=== PATIENT | female | born 1965 | race Caucasian/White ===

== ENCOUNTER 2019-07-05 10:26 | Emergency (ER) | payer OTHER ==
[2019-07-05 11:07] VITALS: BP 137/67
--- NOTE | 2019-07-05 11:34 | UC ---
Throat Pain/Nasal Darrell HPI - HPI Summary HPI Summary: 53 yo woman with rare muscular disease/rhabdomyolosis and renal failure in the past, with 4 day hx of sinus pressure typical of sinusitis. Awoke today with crusting left eye discharge and eye ache, normal vision. Chronic cough secondary to smoking, but no shortness of breath or chest pain. Leaving for [place] this week for the next 6 months. - History of Current Complaint Chief Complaint: UCGeneralIllness Stated Complaint: SINUS CONGESTION,LEFT EYE COMPLAINT Time Seen by Provider: 07/05/19 11:27 Hx Obtained From: Patient Hx Last Menstrual Period: 09/18/12 Onset/Duration: Gradual Onset Severity: Moderate Pain Intensity: 0 Cough: Nonproductive Associated Signs & Symptoms: Positive: Sinus Discomfort, Nasal Discharge. Negative: Dysphagia, Wheezing, Hoarseness, Fever - Epiglottits Risk Factors Epiglottis Risk Factors: Negative - Allergies/Home Medications Allergies/Adverse Reactions: Allergies Allergy/AdvReac Type Severity Reaction Status Date / Time moxifloxacin [From Avelox] Allergy See Comment Verified 07/05/19 11:11 sulfamethoxazole Allergy Hives Verified 07/05/19 11:08 [From Bactrim] trimethoprim [From Bactrim] Allergy Hives Verified 07/05/19 11:08 Home Medications: Home Medications Hydrocodone/Acetaminophen [Vicodin 5-300 mg] 1 tab PO TID PRN 07/05/19 [History Confirmed 07/05/19] PMH/Surg Hx/FS Hx/Imm Hx - Additional Past Medical History Additional PMH: 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 - Surgical History Surgical History: Yes Surgery Procedure, Year, and Place: TUBAL, SINUS SURGERY - Family History Known Family History: Positive: Non-Contributory - Social History Occupation: Disabled - from nursing. Lives: With Family Alcohol Use: None Substance Use Type: None Smoking Status (MU): Heavy Every Day Tobacco Smoker Type: Cigarettes Amount Used/How Often: 1 1/2 PPD Length of Time of Smoking/Using Tobacco: 35 Years Have You Smoked in the Last Year: Yes Household Exposure Type: Cigarettes Review of Systems All Other Systems Reviewed And Are Negative: Yes Constitutional: Positive: Fatigue Skin: Positive: Negative Eyes: Positive: Drainage, Eye Redness. Negative: Photophobia ENT: Positive: Nasal Discharge, Sinus Congestion Respiratory: Positive: Cough Cardiovascular: Negative: Palpitations, Chest Pain Gastrointestinal: Positive: Negative Genitourinary: Positive: Negative Motor: Positive: Negative Neurovascular: Positive: Negative Musculoskeletal: Positive: Myalgia Neurological: Positive: Negative, Headache Is Patient Immunocompromised?: No Physical Exam Triage Information Reviewed: Yes Appearance: Ill-Appearing - looks chronically unwell, Obese Vital Signs: Initial Vital Signs Temp 98.2 F 07/05/19 11:02 Pulse 86 07/05/19 11:02 Resp 16 07/05/19 11:02 BP 137/67 07/05/19 11:02 Pulse Ox 100 07/05/19 11:02 Eye Exam: Other - CARMEN, no photophobia Eyes: Positive: Conjunctiva Inflamed - bilaterally. ENT: Positive: Pharyngeal erythema, TMs normal Neck: Positive: Supple, Nontender, No Lymphadenopathy Respiratory: Positive: Lungs clear, Normal breath sounds Cardiovascular: Positive: RRR, No Murmur Musculoskeletal Exam: Other - not assessed in detail, states cannot move to exam table due to muscle fatigue. Neurological Exam: Normal Psychological Exam: Normal Skin Exam: Normal Throat Pain/Nasal Course/Dx - Course Course Of Treatment: Eye drops and amoxicillin for treatment of conjunctivitis and sinusitis. - Differential Dx/Diagnosis Provider Diagnosis: Sinusitis, Conjunctivitis Discharge ED - Sign-Out/Discharge Documenting (check all that apply): Patient Departure All imaging exams completed and their final reports reviewed: No Studies - Discharge Plan Condition: Stable Disposition: HOME Prescriptions: Amoxicillin PO (*) [Amoxicillin 875 MG (*)] 875 mg PO BID #20 tab Tobramycin 0.3% OPHTH.SARAI* 2 drop BOTH EYES QID 5 Days #1 btl Patient Education Materials: Sinusitis (ED), Conjunctivitis (ED) Referrals: Margie Hayes RD [Primary Care Provider] - Additional Instructions: Use 2 drops to both eyes four times daily for 5 days. Use amoxicillin twice daily for treatment of sinus infection. - Billing Disposition and Condition Condition: STABLE Disposition: Home
== END 2019-07-05 11:52 | disposition home or self-care (01) ==
LOC: UCCORT 10:26
DX: J32.9 Chronic sinusitis, unspecified (principal); H10.9 Unspecified conjunctivitis; F17.210 Nicotine dependence, cigarettes, uncomplicated; Z88.1 Allergy status to other antibiotic agents; Z88.2 Allergy status to sulfonamides
CPT/HCPCS: 99212; G0463